=== PATIENT | male | born 1960 | race Caucasian/White ===

== ENCOUNTER → 2025-05-04 12:49 | Outpatient (BNVA) | payer MEDICARE, SELFPAY | PROVIDERS: Visit Provider Nurse Practitioner Family | DX: M54.9 Dorsalgia, unspecified (principal); M54.16 Radiculopathy, lumbar region; G89.29 Other chronic pain; Z98.890 Other specified postprocedural states | CPT/HCPCS: 99214 ==

== ENCOUNTER → 2025-05-11 13:30 | Outpatient (BNVA) | payer MEDICARE, SELFPAY | PROVIDERS: Visit Provider Nurse Practitioner Family | DX: M79.18 Myalgia, other site (principal); M54.16 Radiculopathy, lumbar region; G89.29 Other chronic pain; Z98.890 Other specified postprocedural states | CPT/HCPCS: 20553; 99214; J1010; J3490 ==

== ENCOUNTER → 2025-05-27 08:35 | Outpatient (BNVA) | payer MEDICARE, SELFPAY | PROVIDERS: Visit Provider Nurse Practitioner Family | DX: M54.16 Radiculopathy, lumbar region (principal); G89.29 Other chronic pain; Z98.890 Other specified postprocedural states | CPT/HCPCS: 99214 ==

== ENCOUNTER → 2025-07-08 08:49 | Outpatient (BNVA) | payer MEDICARE, SELFPAY | PROVIDERS: Visit Provider Nurse Practitioner Family | DX: M54.16 Radiculopathy, lumbar region (principal); G89.29 Other chronic pain; Z98.890 Other specified postprocedural states; Z87.891 Personal history of nicotine dependence | CPT/HCPCS: 99214 ==